=== PATIENT | male | born 1955 | race Two or more races ===

== ENCOUNTER 2023-09-28 11:26 | Emergency (ER) | payer MEDICAID, OTHER ==
[~2023-09-28] VITALS: Ht 167.6 cm; Wt 92.5 kg
[2023-09-28 12:13] VITALS: BP 135/85; PULSE 97; RESP 16; TEMP 97.4; O2SAT 96
[2023-09-28] MEDS ORDERED: IBUP-1456 PO (12:33)
[2023-09-28] MEDS ORDERED: CEPH500C PO (12:33)
== END 2023-09-28 12:38 | disposition home or self-care (01) ==
LOC: ER 11:26
DX: L73.9 Follicular disorder, unspecified (principal); L08.89 Other specified local infections of the skin and subcutaneous tissue; Z79.899 Other long term (current) drug therapy